=== PATIENT | female | born 1955 | race Asian ===

== ENCOUNTER → 2017-02-25 | Outpatient (CLI) | payer MEDICAID | END | disposition home or self-care (01) | LOC: CT 08:31 | PROC: BW251ZZ Computerized Tomography (CT Scan) of Chest, Abdomen and Pelvis using Low Osmolar Contrast (ICD-10-PCS; principal; 2017-02-25) | DX: C50.919 Malignant neoplasm of unspecified site of unspecified female breast (principal) | CPT/HCPCS: Q9967 ==

== ENCOUNTER → 2017-03-03 | Outpatient (CLI) | payer MEDICAID | END | disposition home or self-care (01) | LOC: NM 08:57 | DX: C50.919 Malignant neoplasm of unspecified site of unspecified female breast (principal) ==